=== PATIENT | female | born 1975 | race Caucasian/White ===

== ENCOUNTER 2016-11-12 20:47 | Emergency (ER) | payer BC ==
[~2016-11-12] VITALS: Ht 165.1 cm; Wt 75.0 kg
[~2016-11-12 20:47] MED LIST: FLUO10CA48 PO
[2016-11-12 20:50] VITALS: TEMP 37.5; Ht 165.1 cm; Wt 75.0 kg
[2016-11-12] MEDS ORDERED: IBUPROFEN 600 MG TAB PO STA (21:27)
[2016-11-12] MEDS ORDERED: OXYCODONE HCL IR 5 MG TAB (IMMEDIATE RELEASE) PO STA (21:27)
--- NOTE | 2016-11-12 22:25 | DIAGNOSTIC IMAGING REPORT ---
LEFT HIP 2 VIEWS HISTORY: Left hip pain. COMPARISON: None. FINDINGS: There is no fracture or dislocation. Soft tissues are unremarkable. No radiopaque foreign bodies. IMPRESSION: No fractures. Electronically signed by: Flaquito Domingo M.D. 11/12/2016 10:23 PM Dictated Date/Time: 11/12/2016 10:22 PM
[2016-11-12] MEDS ORDERED: OXYC1TAB3 PO (22:36)
[2016-11-12] MEDS ORDERED: OXYCODONE IR HOME PACK PO ONE (22:45)
[2016-11-12 22:48] VITALS: BP 100/61; PULSE 78; O2SAT 97
--- NOTE | 2016-11-13 00:24 | EMERGENCY ROOM VISIT NOTE ---
History First contact with patient: 21:00 Chief Complaint: HIP PAIN Stated Complaint: LEFT HIP PAIN, CANT LIFT LEG History of Present Illness The patient is a 41 year old female who presents to the Emergency Room with complaints of severe left hip pain and inability to bear weight on the leg because of the pain. The patient denies any significant discomfort this morning. She did do her usual daily workout. The patient reports that the pain started approximately 6 hours later while picking up her children from school. She was unable to put weight on the leg when getting out of the car. The patient denies any prior history of osteoarthritis arthritis of the left hip , or prior injuries to the hip. She denies any pain extending into the abdomen , back or thigh. She rates her discomfort a 3 out of 10 with nonweightbearing, and 10 out of 10 with weightbearing. Review of Systems 10 system review was performed and was negative except for pertinent positives and negatives as indicated in history of present illness Past Medical/Surgical History Medical Problems: (1) Ovarian cyst Surgical Problems: (1) Hx of appendectomy Medical Problems: (1) Gestational diabetes (2) Ovarian cyst Surgical Problems: (1) History of appendectomy (2) History of cholecystectomy (3) Hx of appendectomy Family History FH: diabetes mellitus FH: gallbladder disease FH: heart disease FH: hypertension Social History Smoking Status: Current Some Day Smoker Alcohol Use: occasionally Marital Status: Housing Status: lives with family Occupation Status: employed Current/Historical Medications Scheduled PRN Oxycodone Ir (Roxicodone Ir), 1-2 TAB PO Q4H PRN for Pain Allergies Coded Allergies: Sulfa Drugs (Verified Allergy, Severe, SWELLING, 11/07/15) Physical Exam Vital Signs Date Time Temp Pulse Resp B/P Pulse Ox O2 Delivery O2 Flow Rate FiO2 11/12/16 22:48 78 18 100/61 97 11/12/16 20:50 37.5 85 20 121/79 100 Physical Exam CONSTITUTIONAL: Healthy and well nourished. Alert and oriented X 3 with positive affect. Patient is sitting in a wheelchair. HEENT: Normocephalic, atraumatic. Pupils equal, round and reactive. NECK: Full active range of motion without discomfort. MUSCULOSKELETAL: Examination shows discomfort with logroll. She has no tenderness to palpation through the thigh, anterior superiorly iliac spine or lateral hip region. Pedal pulses are intact. INTEGUMENTARY: No rash or other significant dermatologic conditions noted. NEUROLOGIC: No focal neurologic deficits noted. Left lower extremity is sensory intact. Medical Decision & Procedures ER Provider Diagnostic Interpretation: My interpretation of left hip x-rays does not show any acute fractures or other chronic conditions/pathologic lesions. Radiologist report is as follows: LEFT HIP 2 VIEWS HISTORY: Left hip pain. COMPARISON: None. FINDINGS: There is no fracture or dislocation. Soft tissues are unremarkable. No radiopaque foreign bodies. IMPRESSION: No fractures. Medications Administered Medications (Trade) Dose Ordered Sig/Kristen Route Start Time Stop Time Status Last Admin Dose Admin Oxycodone HCl (Roxicodone Immediate Rel Tab) 5 mg NOW STAT PO 11/12/16 21:27 11/12/16 21:28 DC 11/12/16 21:36 5 MG Ibuprofen (Motrin Tab) 600 mg NOW STAT PO 11/12/16 21:27 11/12/16 21:28 DC 11/12/16 21:36 600 MG Oxycodone HCl (Roxicodone Immediate Rel 5MG Home Pack) 1 homepack UD ONCE PO 11/12/16 22:45 11/12/16 22:46 DC 11/12/16 22:44 1 HOMEPACK ED Course Patient history and physical exam were performed. Nurse's notes were reviewed. The patient requested something for pain, and was administered OxyIR 5 mg. X- rays of the left hip were normal. The patient reports that she does have crutches at home. She was encouraged to remain toe-touch weightbearing/ nonweightbearing until her symptoms improve. Ibuprofen and Tylenol in alternating fashion for baseline pain relief. The patient was provided a home pack and prescription for OxyIR as needed for breakthrough pain. No drinking or driving while taking these medications. The patient was encouraged to follow -up with Dr. Boucher for further reevaluation and management. The patient was happy with plan of care, voiced understanding of all discharge instructions, and rated her pain a 3 out of 10 at the time of discharge. Medical Decision Impression Primary Impression: Acute pain of left hip Departure Information Prescriptions Oxycodone Ir (Roxicodone Ir) 5 Mg Tab 1-2 TAB PO Q4H Y for Pain, #15 TAB For Initial Treatment Prov: Guzman Martinez PA 11/12/16 Referrals Caren Mason M.D. (PCP) Patient Instructions A Signature Page, My [facility]
== END 2016-11-12 22:51 | disposition home or self-care (01) ==
LOC: C.EDB 20:48 → C.EDD 22:51
DX: M25.552 Pain in left hip (principal); F17.200 Nicotine dependence, unspecified, uncomplicated; Z83.3 Family history of diabetes mellitus; Z82.49 Family history of ischemic heart disease and other diseases of the circulatory system

== ENCOUNTER 2018-11-12 05:31 | Observation (INO) ==
--- NOTE | 2018-10-18 11:28 | Anesthesiology Consultation ---
Date of Service October 18, 2018 Assessment & Plan (1) Encounter for pre-operative examination: Plan: CHECK TEST AM DOS Chart Review Chart Review: Acceptable Risk for Surgery and Patient seen in Pre Admission Testing Teaching & Discussion Instructed NPO after midnight before surgery, except medications with 15 cc of water. Medication instructions provided according to the PAT guidelines. History Surgery Operation Date: 11/12/18 07:30 Proposed Procedures p Robotic Total Laparoscopic Hysterectomy - Eliud Russell MD Height/Weight Height: 5 ft 4 in Weight: 82.8 kg Allergies Allergy/AdvReac Type Severity Reaction Status Date / Time Sulfa (Sulfonamide Allergy Severe Rash, Verified 10/18/18 11:24 Antibiotics) generalized swelling Medications Home Medications Medication Instructions Recorded Confirmed Last Taken fluoxetine [Prozac] 10 mg PO QAM 10/15/18 10/15/18 Unknown fluticasone [Flonase Allergy 1 spray INTRANASAL QAM 10/15/18 10/15/18 Unknown Relief] folic acid 1 mg PO QAM 10/15/18 10/15/18 Unknown methotrexate sodium 6 tab PO WK 10/15/18 10/15/18 Unknown turmeric 1 tab PO QAM 10/15/18 10/15/18 Unknown Past Medical History Medical History Anxiety Depression Environmental allergies Hx gestational diabetes Rheumatoid arthritis Seasonal allergies Past Family History Family History Father Family history of diabetes mellitus Past Surgical History Surgical History History of appendectomy History of cholecystectomy History of colonoscopy Hx of LASIK Past Anesthesia History No Hx of Anesthesia Complications and No Family Hx of Anesthesia Complications History of PONV No Motion Sickness Screening History of Motion Sickness: Yes Social History Smoking Status: Current some day smoker tobacco type: cigarettes Smoking cigarettes per day: 1 Do You Dip or Chew Tobacco: No Hx Alcohol Use: Yes alcohol intake frequency: holidays/special occasions only Hx Substance Use: No Exercise / Class Metabolic Activity II 4-5 Yardwork/Stairs/Walk up hill Review of Systems Pt denies any recent chest pain, shortness of breath, palpitations, fever or URI. +Cough with sinus drainage, pt treating with OTC meds Physical Exam Vital Signs BP: 106/67 P: 71 SPO2: 97% RA T: 97.9 F R: 16 ENMT Mouth: + dental restorations (one crown back R molar); no chipped teeth and no loose teeth Thyromental Distance: > or= 3.5 Finger Breadths (3.5) Mallampati Class: II Neck normal visual inspection; neck extension not limited Respiratory normal respiratory effort Auscultation: lungs clear to auscultation bilaterally Cardiovascular Rate/Rhythm: regular rate and regular rhythm Heart Sounds: no murmur Testing Laboratory Results 10/18/18 11:43 Blood Type A Positive 10/18/18 11:43 Antibody Screen NEGATIVE 10/18/18 11:43
--- NOTE | 2018-10-18 11:35 | PAT Medication Instructions ---
Medication Instructions Date of Service October 18, 2018 Home Medications fluoxetine [Prozac] 10 mg PO QAM fluticasone [Flonase Allergy 1 spray INTRANASAL QAM folic acid 1 mg PO QAM methotrexate sodium 6 tab PO WK turmeric 1 tab PO QAM ASK your prescriber and surgeon methotrexate sodium 6 tab PO WK *Will need to be stopped 7 days prior to surgery per anesthesia* STOP taking 2 weeks before surgery turmeric 1 tab PO QAM DO NOT take the morning of surgery folic acid 1 mg PO QAM Take morning of surgery With a small sip of water, OTHERWISE NOTHING TO EAT OR DRINK AFTER MIDNIGHT: fluoxetine [Prozac] 10 mg PO QAM fluticasone [Flonase Allergy 1 spray INTRANASAL QAM Other Notes If you have any questions please call us at [phone] or [phone] or [phone] or [phone]
[2018-10-18 12:08] LABS: Basophils # (auto) 0.03 K/uL (0-0.2); Basophils % (auto) 0.4 %; Eosinophils # (auto) 0.14 K/uL (0-0.5); Eosinophils % (auto) 1.7 %; Hematocrit (blood only) 38.1 % (37-47); Immature Granulocytes # (auto) 0.01 K/uL (0.00-0.02); Immature Granulocytes % (auto) 0.1 %; Lymphocytes # (auto) 2.92 K/uL (1.2-3.4); Lymphocytes % (auto) 35.3 %; Mean Corpuscular Hgb Conc 34.1 g/dL (32-36); Mean Corpuscular Volume 88.4 fL (80-100); Mean Platelet Volume 8.6 fL (7.4-10.4); Monocytes # (auto) 0.53 K/uL (0.11-0.59); Monocytes % (auto) 6.4 %; Neutrophils # (auto) 4.64 K/uL (1.4-6.5); Neutrophils % (auto) 56.1 %; Platelet Count 208 K/uL (130-400); RDW Coefficient of Variation 13.7 % (11.5-14.5); RDW Standard Deviation 44.5 fL (36.4-46.3); Red Blood Count 4.31 M/uL (4.2-5.4); White Blood Count 8.27 K/uL (4.8-10.8)
--- NOTE | 2018-10-18 12:10 | XRay Report ---
XR cervical spine 2 or 3V CLINICAL HISTORY: 42 years-old Female presenting with pre-op RA; lateral neutral/flexion/extension. TECHNIQUE: Lateral views of the cervical spine in neutral, flexion, and extension positioning were ob tained. COMPARISON: None. FINDINGS: On neutral positioning, straightening of normal cervical lordosis. The C7 vertebral body is fully vis ualized. Vertebral bodies maintain normal height and alignment. Intervertebral disc heights preserved . No advanced degenerative change. The atlantodental articulation is normal. No widening of the prede ntal interval. No fracture or subluxation. No prevertebral soft tissue swelling. On flexion positioning, expected reversal of cervical lordosis. No widening of the predental interval . No evidence of dynamic subluxation. On extension positioning, expected increase in cervical lordosis. No widening of the predental interv al. No evidence of dynamic subluxation. IMPRESSION: No advanced degenerative changes or evidence of arthritis in the cervical spine. No dynamic subluxati on on extension and flexion positioning. Electronically signed by: Jett Stapleton M.D. 10/18/2018 12:09 PM
[2018-11-12] MEDS ORDERED: CEFAZOLIN 2000MG 2,000 MG/15 ML SYR IV SCH (06:00)
[2018-11-12] MEDS ORDERED: LR 15ML/HR IV SCH (06:00)
[2018-11-12 06:07] LABS: Basophils # (auto) 0.05 K/uL (0-0.2); Basophils % (auto) 0.5 %; Eosinophils # (auto) 0.25 K/uL (0-0.5); Eosinophils % (auto) 2.7 %; Hematocrit (blood only) 40.5 % (37-47); Hemoglobin 13.7 g/dL (12.0-16.0); Immature Granulocytes # (auto) 0.02 K/uL (0.00-0.02); Immature Granulocytes % (auto) 0.2 %; Lymphocytes # (auto) 2.91 K/uL (1.2-3.4); Lymphocytes % (auto) 31.5 %; Mean Corpuscular Volume 89.4 fL (80-100); Mean Platelet Volume 8.6 fL (7.4-10.4); Monocytes # (auto) 0.86 K/uL (0.11-0.59); Monocytes % (auto) 9.3 %; Neutrophils # (auto) 5.14 K/uL (1.4-6.5); Neutrophils % (auto) 55.8 %; Platelet Count 236 K/uL (130-400); RDW Coefficient of Variation 13.8 % (11.5-14.5); RDW Standard Deviation 44.8 fL (36.4-46.3); Red Blood Count 4.53 M/uL (4.2-5.4); White Blood Count 9.23 K/uL (4.8-10.8)
[2018-11-12 06:17] LABS: Mean Corpuscular Hgb Conc 33.8 g/dL (32-36)
[2018-11-12] MEDS ORDERED: BUPIVACAINE 0.5 % 5 MG/1 ML MPF 30ML VIAL ONE (06:52)
[2018-11-12] MEDS ORDERED: fentaNYL citrate 100 MCG/2 ML VIAL ONE (06:55)
[2018-11-12] MEDS ORDERED: MIDAZOLAM HCL 1 MG/ML 2ML VIAL ONE (06:55)
[2018-11-12] MEDS ORDERED: MoRPHine SULFATE 10 MG/ML CARP/VIAL IV PRN (07:07)
[2018-11-12] MEDS ORDERED: fentaNYL citrate 100 MCG/2 ML VIAL IV PRN (07:07)
[2018-11-12] MEDS ORDERED: ATROPINE SULFATE 0.1 MG/ML 10ML SYR IV PRN (07:07)
[2018-11-12] MEDS ORDERED: ONDANSETRON INJ 2 MG/ML 2 ML VIAL IV PRN ×2 (07:07→09:36)
[2018-11-12] MEDS ORDERED: ePHEDrine sulfate 50 MG/ML AMP IV PRN (07:07)
--- NOTE | 2018-11-12 07:07 | History & Physical Bridge Note ---
Date of Service November 12, 2018 History & Physical Bridge Note I have examined the patient, reviewed the History & Physical and in the interval since the performance of the History & Physical I have noted the following changes of clinical significance: no changes noted
[2018-11-12] MEDS ORDERED: SCOPOLAMINE 1.5 MG TDSY ONE (07:23)
[2018-11-12] MEDS ORDERED: ACETAMINOPHEN 1000 MG/100 ML IV IV ONE (08:01)
[2018-11-12] MEDS ORDERED: PROPOFOL IV EMULSION 10 MG/ML 20 ML VIAL IV ONE (08:08)
[2018-11-12] MEDS ORDERED: ONDANSETRON INJ 2 MG/ML 2 ML VIAL ONE (08:08)
[2018-11-12] MEDS ORDERED: LIDOCAINE HCL 2% 2 ML VIAL/AMP(20MG/ML) INFIL ONE (08:08)
[2018-11-12] MEDS ORDERED: ePHEDrine sulfate 50 MG/ML SYR ONE (08:08)
[2018-11-12] MEDS ORDERED: ROCURONIUM BROMIDE 10 MG/ML 5 ML VIAL ONE (08:08)
[2018-11-12] MEDS ORDERED: DEXAMETHASONE SOD INJ 4 MG/ML VIAL ONE (08:08)
[2018-11-12] MEDS ORDERED: NEOSTIGMINE METHYLSULFATE 5 MG/5 ML SYR ONE (08:08)
[2018-11-12] MEDS ORDERED: GLYCOPYRROLATE 0.2 MG/ML VIAL ONE (08:08)
[2018-11-12] MEDS ORDERED: HYDROmorphone INJ 2 MG/ML SYR/VIAL ONE (08:16)
[2018-11-12] MEDS ORDERED: LARYING-O-JET KIT (LTA) ONE (09:07)
[2018-11-12] MEDS ORDERED: TISSEEL FIBRIN SEALANT 4ML TOP ONE (09:19)
[2018-11-12] MEDS ORDERED: KETOROLAC 30 MG/ML VIAL ONE (09:25)
--- NOTE | 2018-11-12 09:35 | Post Operative Brief Note ---
Immediate Post Op Note v1 Date of Surgery November 12, 2018 Pre & Post Diagnosis Operation Date: 11/12/18 07:30 Pre-Op Diagnosis: Chronic Pelvic Pain, Dysmenorrhea,Menometrorrhagia Post-Op Diagnosis: Chronic Pelvic Pain, Dysmenorrhea,Menometrorrhagia Procedure Operation Date: 11/12/18 07:30 Actual Procedures p Robotic Total Laparoscopic Hysterectomy Bilateral Salpingectomy; Cystoscopy( Not Applicable) - Eilud Russell MD Complications: None Findings: Normal uterus, fallopian tubes and ovaries. Moderate adhesive disease mainly underlying prior appendectomy incision. Surgeon Eliud Russell MD Certified Genetic Counselor None Estimated Blood Loss 10 Findings Consistent with Post-Op Diagnosis Drains Prakash Catheter
[2018-11-12] MEDS ORDERED: PROMETHAZINE HCL 12.5 MG in SODIUM CHLORIDE 0.9% 50 ML IV PRN (09:36)
[2018-11-12] MEDS ORDERED: KETOROLAC 30 MG/ML VIAL IV PRN (09:36)
[2018-11-12] MEDS ORDERED: IBUPROFEN 600 MG TAB PO PRN (09:36)
[2018-11-12] MEDS ORDERED: OXYCODONE/ACETAMINOPHEN 5mg/325mg TAB PO PRN (09:36)
[2018-11-12] MEDS ORDERED: ACETAMINOPHEN 325 MG TAB PO PRN (09:36)
--- NOTE | 2018-11-12 10:49 | Anesthesiology Progress Note ---
Date of Service November 12, 2018 Anesthesia Post Procedure Vital Signs Vital Signs: Temp Pulse Pulse Resp BP BP Pulse Ox 11/12/18 10:35 97.3 F L 55 L 16 114/59 L 98 11/12/18 10:25 69 16 112/63 100 11/12/18 10:15 57 L 16 112/63 100 11/12/18 10:05 60 16 111/53 L 100 11/12/18 09:55 67 17 105/46 L 100 11/12/18 09:49 97.3 F L 88 21 124/60 100 11/12/18 05:56 98.2 F 80 16 122/74 94 Pain Intensity Abdomen: Pain Intensity: 4 Notes Mental Status: alert / awake / arousable and participated in evaluation Patient Amnestic to Procedure: Yes Nausea / Vomiting: adequately controlled Pain: adequately controlled Airway Patency, RR, SpO2: stable & adequate BP & HR: stable & adequate Hydration State: stable & adequate Anesthetic Complications: no major complications apparent and Pt Satisfied with anesthetic care
--- NOTE | 2018-11-12 11:15 | Operative Report ---
DATE OF OPERATION: 11/12/2018 PROCEDURES: Total laparoscopic hysterectomy, bilateral salpingectomy and cystoscopy. SURGEON: Eliud Russell MD MANAGER MARKET: None. PREOPERATIVE DIAGNOSES: 1. Dysfunctional uterine bleeding. 2. Chronic pelvic pain. 3. Menometrorrhagia. POSTOPERATIVE DIAGNOSES: 1. Dysfunctional uterine bleeding. 2. Chronic pelvic pain. 3. Menometrorrhagia. 4. Status post procedure. ESTIMATED BLOOD LOSS: 10 mL. COMPLICATIONS: None. DRAINS: Prakash catheter. URINE OUTPUT: Pending. COMPLICATIONS: None. FINDINGS: There was noted to be a normal-appearing uterus, fallopian tubes and ovaries bilaterally. There was noted to be adhesive disease overlying the prior appendectomy, open incision. Otherwise, pelvis was clear of adhesions and requiring no lysis of adhesions for the procedure. There was noted to be an airtight seal vaginal cuff at the completion of the case, there was noted to be bilateral ureteral efflux and intact bladder on cystoscopy. INDICATIONS: Ms. Steven is a 43-year-old with a long history of dysfunctional uterine bleeding and chronic pelvic pain refractory to medical therapies. The patient had attempted multiple medical therapies previously which were provided no significant relief of her heavy bleeding and chronic pelvic pain. Management options were discussed in clinic and the patient opted to proceed with a total laparoscopic hysterectomy, bilateral salpingectomy and cystoscopy with ovarian conservation. Consents were reviewed and signed in clinic. DESCRIPTION OF PROCEDURE: The patient was taken to the operating room after consents were ensured upon presentation, she was properly identified. General endotracheal anesthesia was obtained without difficulty. The patient was then placed in dorsal lithotomy position and was prepped and draped in the normal sterile fashion. A preprocedural timeout was performed after which the speculum was placed in the vagina and the cervix grasped with single tooth tenaculum. The VCare uterine manipulator was then placed within the uterus, was then placed per knock out hand's specifications and the laparoscopic portion of the case was then initiated. An incision was made at the superior aspect of the umbilicus to accommodate a 12 mm trocar. A Veress needle was then inserted into the incision and the abdomen was insufflated. There was noted to be an opening pressure of 5 mmHg, symmetrical abdominal rise and tympany over the liver consistent with appropriate intra-abdominal insufflation. The abdomen was insufflated to 15 mmHg after which a 12 mm optically guided scope was then introduced through the umbilicus. Upon replacement of the camera, there was noted to be atraumatic entry. Robotic ports were then placed in the right and left lower quadrant under direct visualization to assure atraumatic entry. The patient was then placed in deep Trendelenburg and the robot was docked. The robotic portion of the case was then initiated there. The left round ligament was then identified, grasped with the bipolar cautery and cauterized and then serially dissected. The uteroovarian ligament was then grasped, serially cauterized and dissected joining with the round ligament. The anterior bladder flap was then initiated, starting at the left and progressing towards the right aspect of the uterus. The broad ligament was then dissected down to the uterine vessels without difficulty. Attention was then turned to the right aspect of the uterus. The right round ligament was then grasped, cauterized, serially dissected. The bladder flap was continued anteriorly joining with the bladder flap that was initiated on the left side. The bladder was dissected off of the lower uterine segment and cervix, clearing rim for the colpotomy. The right uteroovarian ligament was grasped, cauterized and serially dissected continuing down to the prior dissected round ligament. The broad ligament was then dissected down to the level of the right uterine vessels. The right uterine vessels were isolated, grasped and serially cauterized and dissected. The left uterine vessels were then cauterized and divided. The colpotomy was then started anteriorly, continued circumferentially around the cervix, freeing the cervix from the colpotomy. The uterus and cervix were then delivered through the colpotomy without difficulty. The fallopian tubes were then cauterized and serially dissected, freeing them from the ovary and IP ligament. They were then delivered through the vagina without difficulty. The attention was then turned to closure of the colpotomy. A V-Loc suture was then introduced through the vagina and the colpotomy was closed with a single interrupted stitch of V-Loc suture. After confirming the airtight seal, the suture was cut and the needle was brought through the trocars. Attention was then turned to performing the cystoscopy. The robot was undocked. On cystoscopy, there was noted to be bilateral ureteral flow and intact bladder without signs of injury. The camera was then reintroduced through the abdomen and the inspection of the vaginal cuff and ovaries was initiated. Tisseel was then placed over the raw surfaces of the raw pedicles. The decision was then made to end of the case. The abdomen was desufflated and trocars removed. The fascia at the umbilicus reapproximated with 0 Vicryl and a single interrupted stitch. The skin was reapproximated with 4-0 Vicryl in an interrupted stitch. The Dermabond was placed on top. Ten mL of lidocaine was distributed throughout the 3 incisions. The patient was then awoken from anesthesia and taken to the recovery room in excellent condition. The patient received 2 grams of Ancef prior to the procedure. I attest to the content of the Intraoperative Record and any orders documented therein. Any exception s are noted below.
[2018-11-12] MEDS: OXYCODONE/ACETAMINOPHEN 5mg/325mg TAB PO PRN ×2 (13:00→17:35)
[2018-11-12 16:48] VITALS: BP 102/57; TEMP 97.9; O2SAT 97
[2018-11-12 16:55] VITALS: PULSE 55
--- NOTE | 2018-11-19 17:23 | Discharge Summary ---
PROCEDURES DURING ADMISSION: Total laparoscopic hysterectomy, bilateral salpingectomy, and cystoscopy. HOSPITAL COURSE: Patient was admitted for planned total laparoscopic hysterectomy, bilateral salpingectomy, and cystoscopy. The procedures went without complication. The patient recovered well and was discharged home on the day of procedure in excellent condition. Patient was provided postoperative instructions and is scheduled for a followup visit in 2-3 weeks following procedure.
== END 2018-11-12 17:45 | disposition home or self-care (01) ==
LOC: 4N 05:31 → ASU 05:31